=== PATIENT | female | born 1990 | race Caucasian/White ===

== ENCOUNTER 2016-04-10 22:49 | Inpatient (IN) | payer OTHER ==
[~2016-04-10] VITALS: Ht 157.5 cm; Wt 54.9 kg
[2016-04-10 22:55] VITALS: BP 146/86; PULSE 112; RESP 18; Ht 157.5 cm; Wt 54.9 kg
[2016-04-10] MEDS ORDERED: FERR325C PO (23:06)
[2016-04-10] MEDS ORDERED: LACTATED RINGER'S 1,000 ML IV SCH (23:26)
[2016-04-10] MEDS ORDERED: BUTORPHANOL 2 MG INJ IV PRN (23:30)
[2016-04-10] MEDS ORDERED: AMPICILLIN 2 GM/NS (PMX) 100 ML IV ONE (23:30)
[2016-04-10] MEDS ORDERED: LIDOCAINE 1% (MPF) 30 ML INJ INJ PRN (23:30)
[2016-04-10] MEDS ORDERED: MISOPROSTOL 200 MCG TAB PR PRN (23:30)
[2016-04-10] MEDS ORDERED: OXYTOCIN 30 UNITS/LR 500 ML IV PRN (23:30)
[2016-04-10] MEDS ORDERED: METHYLERGONOVINE 0.2 MG INJ IM PRN (23:30)
[2016-04-10] MEDS ORDERED: IBUPROFEN 600 MG TAB PO PRN (23:30)
[2016-04-10] MEDS ORDERED: CARBOPROST 250 MCG INJ IM PRN (23:30)
[2016-04-10] MEDS ORDERED: LACTATED RINGER'S 1,000 ML IV PRN (23:45)
[2016-04-11] VITALS (12 sets, daily range): BP systolic 123–146; BP diastolic 74–101; PULSE 76–103; RESP 16–20
[2016-04-11 00:10] LABS: ADD UMIC YES; URINE BILIRUBIN (Dip) NEGATIVE (NEGATIVE); URINE BLOOD (Dip) 1+ (NEGATIVE); URINE COLOR LT. YELLOW (YELLOW); URINE GLUCOSE (Dip) NEGATIVE (NEGATIVE); URINE KETONES (Dip) NEGATIVE (NEGATIVE); URINE LEUKOCYTE ESTERASE (Dip) 2+ (NEGATIVE); URINE NITRITE (Dip) NEGATIVE (NEGATIVE); URINE TOTAL PROTEIN (Dip) NEGATIVE (NEGATIVE); URINE UROBILINOGEN (Dip) 0.2 E.U./dL (0.1-1.0)
[2016-04-11] MEDS ORDERED: TERBUTALINE 1 ML ONE (00:23)
[2016-04-11] MEDS ORDERED: TERBUTALINE 1 MG/ML INJ SC ONE (00:30)
[2016-04-11 00:36] LABS: INR 1.64; PROTIME 19.5 Sec (12.2-14.2); PT RATIO 1.5
[2016-04-11 00:37] LABS: PARTIAL THROMBOPLASTIN TIME 41.5 Sec (25.0-35.0)
[2016-04-11 00:40] LABS: ALBUMIN 2.7 g/dl (3.3-4.9); POTASSIUM 4.6 mmol/L (3.5-5.1)
[2016-04-11 00:42] LABS: CREATININE 1.7 mg/dl (0.44-1.00); URIC ACID 10.4 mg/dl (3.1-7.9)
[2016-04-11 00:43] LABS: ALBUMIN/GLOBULIN RATIO 0.81; BILIRUBIN,INDIRECT 0.5 mg/dl (0-1.1); BILIRUBIN,TOTAL 1.5 mg/dl (0.2-1.3); CALCIUM 8.3 mg/dl (8.4-10.2)
[2016-04-11 00:44] LABS: BACTERIA,URINE MODERATE; SQUAMOUS EPITHELIAL CELL,UR MODERATE
[2016-04-11 00:54] LABS: BARBITURATES NEGATIVE (NEGATIVE); BENZODIAZEPINES NEGATIVE (NEGATIVE); CANNABINOIDS NEGATIVE (NEGATIVE); COCAINE NEGATIVE (NEGATIVE); OPIATES NEGATIVE (NEGATIVE)
[2016-04-11] MEDS ORDERED: MAGNESIUM SULFATE 4 GM/100 ML 100 ML ONE (01:20)
[2016-04-11] MEDS ORDERED: MAGNESIUM SULFATE 4 GM/100 ML 100 ML IVPB ONE (01:30)
[2016-04-11 01:32] LABS: BASOPHIL # 0.1 10^3/ul (0.0-0.1); BASOPHILS % 0.4 % (0.0-2.0); EOSINOPHILS % 0.2 % (0.0-7.0); HEMATOCRIT 31.2 % (37.0-47.0); HEMOGLOBIN 9.1 g/dl (12.0-16.0); LYMPHOCYTES # 2.8 10^3/ul (0.8-2.9); LYMPHOCYTES % 23.4 % (15.0-51.0); MEAN CORPUSCULAR HEMOGLOBIN 23.6 pg (29.0-33.0); MEAN CORPUSCULAR HGB CONC 29.2 g/dl (32.0-37.0); MEAN PLATELET VOLUME 12.4 fl (7.4-10.4); MONOCYTE # 0.5 10^3/ul (0.3-0.9); MONOCYTES % 4.4 % (0.0-11.0); NEUTROPHIL # 8.1 10^3/ul (1.6-7.5); NUCLEATED RED BLOOD CELLS # 0.2 10^3/ul (0.0-0.0); NUCLEATED RED BLOOD CELLS% 1.9 /100WBC (0.0-0.0); PLATELET COUNT 276 10^3/UL (140-415); RED BLOOD COUNT 3.85 10^6/ul (4.20-5.40); RED CELL DISTRIBUTION WIDTH 18.5 % (11.5-14.5); WHITE BLOOD COUNT 11.9 10^3/ul (4.8-10.8)
[2016-04-11] MEDS: OXYTOCIN 30 UNITS/LR 500 ML IV SCH ×2 (01:39→01:41)
[2016-04-11] MEDS ORDERED: OXYTOCIN 30 UNITS/LR 500 ML IV SCH (01:45)
[2016-04-11] MEDS ORDERED: MAGNESIUM SULFATE 20 GM/500 ML 500 ML IV SCH ×2 (01:45→02:00)
--- NOTE | 2016-04-11 01:58 | LDN ---
Date/Time of Note Date/Time of Note DATE: 04/11/16 TIME: 01:55 Delivery Summary of a viable baby girl weighing 2024 grams, or 4# 7 oz, 16.75" long, and with Apgars of 8/9. Placenta Delivered: Spontaneously Meconium: none Perineum intact?: No Perineal laceration: 2 Perineal laceration repair: Second degree perineal episiotomy repaired with 2-0 chromic. Anesthesia type: Local Estimated blood loss: 200 Sponge & Needle done & correct: Yes All needle counts correct: Yes Any foreign bodies felt in the: No (vagina) Problems: Delivery Information Sex Sex: female Apgars 1 Minute: 8 5 Minute: 9 Suctioning Nose & mouth suctioned at radames: No Delee suction performed: No Umbilical Cord Umbilical cord with: 3 Vessels Cord presentations: no nuchal cord Cord Blood was obtained: Yes Mother & Baby Disposition Disposition Mom & Baby to Maternity; Good: Yes Baby to NICU: No BRUCE WATTS MD Apr 11, 2016 01:58
[2016-04-11] MEDS ORDERED: CARBOPROST 250 MCG INJ IM PRN (02:00)
[2016-04-11] MEDS ORDERED: OXYTOCIN 30 UNITS/LR 500 ML IV PRN (02:00)
[2016-04-11] MEDS ORDERED: OXYCODONE/ASPIRIN (4.88/325) TAB PO PRN (02:00)
[2016-04-11] MEDS ORDERED: METHYLERGONOVINE 0.2 MG INJ IM PRN (02:00)
[2016-04-11] MEDS ORDERED: BENZOCAINE 20% 56 ML SPRAY TOP PRN (02:00)
[2016-04-11] MEDS ORDERED: MISOPROSTOL 200 MCG TAB PR PRN (02:00)
--- NOTE | 2016-04-11 02:07 | HP ---
Date/Time of Note Date/Time of Note DATE: 04/11/16 TIME: 01:58 OB - History Hx of Present Free Text/Dictation 26 y.o. G1 with an IUP at 36 weeks 4 days came in active labor at 4 cm and quickly progressed to complete. Blood pressures noted to be elevated. Received lab results after delivery confirming severe PIH, not labor pains, as the primary source of the elevated BP's. Uric acid elevated and the LFT's were elevated. Platelets are normal. Started on magnesium after delivery. Pt was living in the [facility] with her parents and just moved to [place] to live with the FOB. Estimated Due Date: May 05, 2016 : 1 Para: 0 Spontaneous : 0 Care: Good Care Obstetrical Complications: Pre-eclampsia Past Family/Social History * Past Medical, Surgical, Family and Obstetric Histories reviewed from the patient. Prenatals not available. Blood Type: Unknown Rubella: unknown RPR/VDRL: Unknown GBS Status: Unknown HBsAG: Unknown OB Admission Exam Vital Signs Vital Signs Vital Signs Date Time Temp Pulse Resp B/P Pulse Ox O2 Delivery O2 Flow Rate FiO2 04/10/16 22:55 97.4 112 18 146/86 Room Air Physical Exam HEENT: WNL Heart: Rhythm Normal Lungs: Clear Abdomen: WNL Extremities: Edema (1-2+ edema.) Cervical Dilatation: 5cm Effacement: 100% Station: -2 Membranes: Intact Heart Rate: 130's Accelerations: Accelerations Present Decelerations: Late Decelarations Varibility: Moderate Contractions on Admission: < 5 Minutes Apart Last 72 hours Lab Results CBC & BMP 04/10/16 00:10 Liver Function Test 04/10/16 00:10 Alanine Aminotransferase (ALT/SGPT) 429 H Albumin 2.7 L Alkaline Phosphatase 471 H Aspartate Amino Transf (AST/SGOT) 344 H Direct Bilirubin 1.00 H Total Protein 6.0 L OB Assessment/Plan Reason for admission: active labor, labor, other (severe PIH.) Plan: Expectant Management Induction Method: other (pitocin) BRUCE WATTS MD Apr 11, 2016 02:07
--- NOTE | 2016-04-11 02:09 | RADRPT ---
PROCEDURE: ULTRASOUND OBSTETRICAL CLINICAL INDICATION: 26-year-old female in labor for size and date determination. TECHNIQUE: Multiple sonographic images of the pelvis were obtained. The images were reviewed on a PACS workstation. COMPARISON: No prior studies are available for comparison. FINDINGS: The cervix is not well visualized. There is a single viable intrauterine gestation. Cardiac activi ty is present with 141 beats per minute. There is a vertex presentation. Measurements were made in o rder to determine age. The results are as follows: BPD = 8.71 cm, HC = 31.31 cm, AC = 31.03 cm, FL = 6.89 cm. This yields and estimated gestational ag e of approximately 35 weeks 1 day. The estimated date of delivery is May 14, 2016. The EFW = 259 4 +/- 389 g (5 lb 12 oz). The GP is 20%. The amniotic fluid index equals 7.4 cm. IMPRESSION: 1. Single viable intrauterine gestation of approximately 35 weeks 1 day with vertex presentation. The estimated date of delivery is May 14, 2016. 2. The estimated weight is 2594 +/- 389 g (5 lb 12 oz). The GP is 20%. .Evert Thomas MD, Date Time Electronically viewed and signed by .Evert Thomas MD, MD on 04/11/2016 02:09 .Jose E/
[2016-04-11] MEDS ORDERED: LABETALOL HCL 20MG INJ ONE (02:10)
[2016-04-11] MEDS ORDERED: LABETALOL HCL 20MG INJ IV ONE ×2 (02:15→03:15)
[2016-04-11] MEDS ORDERED: ONDANSETRON 4 MG INJ IV STA (02:42)
[2016-04-11] MEDS ORDERED: AMPICILLIN 1 GM/NS (PMX) 50 ML IV SCH (03:30)
[2016-04-11] MEDS: LACTATED RINGER'S 1,000 ML IV SCH ×2 (12:06→12:07)
[2016-04-11] MEDS ORDERED: OMEPRAZOLE 20 MG PO SCH (18:30)
[2016-04-11] MEDS: PAROXETINE 20 MG TAB PO SCH (23:48)
[2016-04-11] MEDS: OMEPRAZOLE 20 MG PO SCH (23:48)
[2016-04-12] VITALS: BP 125/84; PULSE 97; RESP 18
[2016-04-12 04:00] VITALS: BP 115/68; PULSE 81; RESP 18
[2016-04-12 07:23] LABS: INR 1.7; PARTIAL THROMBOPLASTIN TIME 40.7 Sec (25.0-35.0); PROTIME 20.1 Sec (12.2-14.2); PT RATIO 1.6
[2016-04-12 07:24] LABS: BASOPHIL # 0.1 10^3/ul (0.0-0.1); BASOPHILS % 0.3 % (0.0-2.0); EOSINOPHILS % 0.1 % (0.0-7.0); HEMATOCRIT 23.1 % (37.0-47.0); HEMOGLOBIN 7.4 g/dl (12.0-16.0); LYMPHOCYTES # 4.4 10^3/ul (0.8-2.9); LYMPHOCYTES % 23.1 % (15.0-51.0); MEAN CORPUSCULAR HEMOGLOBIN 24.9 pg (29.0-33.0); MEAN CORPUSCULAR HGB CONC 32.1 g/dl (32.0-37.0); MEAN CORPUSCULAR VOLUME 77.7 fl (82.0-101.0); MEAN PLATELET VOLUME 9.9 fl (7.4-10.4); MONOCYTE # 1.1 10^3/ul (0.3-0.9); NEUTROPHIL # 13.4 10^3/ul (1.6-7.5); NEUTROPHILS % 70.5 % (39.0-77.0); PLATELET COUNT 203 10^3/UL (140-440); RED BLOOD COUNT 2.97 10^6/ul (4.20-5.40); RED CELL DISTRIBUTION WIDTH 20.1 % (11.5-14.5)
[2016-04-12 07:31] LABS: CONDITION 1; LH ANALYZER COMMENTS 1
[2016-04-12 07:40] LABS: ALBUMIN 1.9 g/dl (3.3-4.9)
[2016-04-12 07:41] LABS: POTASSIUM 3.6 mmol/L (3.5-5.1)
[2016-04-12 07:43] LABS: BILIRUBIN,DIRECT 0.5 mg/dl (0.00-0.20); BILIRUBIN,INDIRECT 0.5 mg/dl (0-1.1); CREATININE 1.89 mg/dl (0.44-1.00); TOTAL PROTEIN 4.6 g/dl (6.1-8.1)
[2016-04-12 07:44] LABS: PHOSPHORUS 4.1 mg/dl (2.5-4.9)
[2016-04-12 08:30] VITALS: BP 122/80; PULSE 82; RESP 16
[2016-04-12] MEDS: OMEPRAZOLE 20 MG PO SCH (09:29)
--- NOTE | 2016-04-12 12:45 | QN ---
Documentation Comment ppd1 pt doing well vs exam wnl continue care TOMASZ ESPAÑA MD Apr 12, 2016 12:45
[2016-04-12] MEDS ORDERED: IBUPROFEN 600 MG TAB PO PRN (15:00)
[2016-04-12 16:00] VITALS: BP 128/84; PULSE 80; RESP 18
[2016-04-12 20:00] VITALS: BP_SYST 104; BP_SYST 132; BP_DIAS 63; BP_DIAS 86; PULSE 71; PULSE 74; RESP 16; RESP 20
[2016-04-13] VITALS: BP 123/82; PULSE 70; RESP 20
[2016-04-13] MEDS: PAROXETINE 20 MG TAB PO SCH (00:13)
[2016-04-13 04:19] VITALS: BP 131/77; PULSE 84; RESP 20
[2016-04-13] MEDS: OMEPRAZOLE 20 MG PO SCH (05:56)
[2016-04-13 08:30] VITALS: BP 140/70; PULSE 85; RESP 16
[2016-04-13 11:23] LABS: BASOPHIL # 0.1 10^3/ul (0.0-0.1); BASOPHILS % 0.4 % (0.0-2.0); EOSINOPHILS % 0.2 % (0.0-7.0); HEMATOCRIT 26.7 % (37.0-47.0); HEMOGLOBIN 8.4 g/dl (12.0-16.0); LYMPHOCYTES # 3.8 10^3/ul (0.8-2.9); LYMPHOCYTES % 24.2 % (15.0-51.0); MEAN CORPUSCULAR HEMOGLOBIN 24.5 pg (29.0-33.0); MEAN CORPUSCULAR HGB CONC 31.3 g/dl (32.0-37.0); MEAN CORPUSCULAR VOLUME 78.3 fl (82.0-101.0); MEAN PLATELET VOLUME 9.5 fl (7.4-10.4); MONOCYTE # 0.8 10^3/ul (0.3-0.9); MONOCYTES % 5.3 % (0.0-11.0); NEUTROPHIL # 11.1 10^3/ul (1.6-7.5); NEUTROPHILS % 69.9 % (39.0-77.0); PLATELET COUNT 237 10^3/UL (140-440); RED BLOOD COUNT 3.41 10^6/ul (4.20-5.40); UNCORRECTED WBC 15.9 10^3/ul (4.8-10.8); WHITE BLOOD COUNT 15.9 10^3/ul (4.8-10.8)
[2016-04-13 11:29] LABS: CONDITION 1; LH ANALYZER COMMENTS 1; NUCLEATED RED BLOOD CELLS # 0.3 10^3/ul (0.0-0.0)
[2016-04-13 11:35] LABS: ALBUMIN 2.3 g/dl (3.3-4.9)
[2016-04-13 11:36] LABS: POTASSIUM 3.7 mmol/L (3.5-5.1)
[2016-04-13 11:38] LABS: BILIRUBIN,DIRECT 0.4 mg/dl (0.00-0.20); BILIRUBIN,INDIRECT 0.4 mg/dl (0-1.1); BILIRUBIN,TOTAL 0.8 mg/dl (0.2-1.3); CREATININE 1.31 mg/dl (0.44-1.00)
[2016-04-13 11:39] LABS: ALBUMIN/GLOBULIN RATIO 0.74; CALCIUM 6.9 mg/dl (8.4-10.2); TOTAL PROTEIN 5.4 g/dl (6.1-8.1)
[2016-04-13 13:27] LABS: RUBELLA ANTIBODY - IGG 2.16
[2016-04-13 16:00] VITALS: BP 135/85; PULSE 72; RESP 17
== END 2016-04-13 19:59 | disposition home or self-care (01) | DRG 775 ==
LOC: OBT 22:49 → L-D 22:51 → OBT 04-11 00:21 → L-D 04-11 00:22 → PP1 04-11 05:50
PROVIDERS: ADMIT Obstetrics & Gynecology; ATTEND Obstetrics & Gynecology
PROC: 10E0XZZ Delivery of Products of Conception, External Approach (ICD-10-PCS; principal; 2016-04-11)
PROC: 0KQM0ZZ Repair Perineum Muscle, Open Approach (ICD-10-PCS; 2016-04-11)
DX: O60.14X0 Preterm labor third trimester with preterm delivery third trimester, not applicable or unspecified (principal); O14.94 Unspecified pre-eclampsia, complicating childbirth; O70.1 Second degree perineal laceration during delivery; Z3A.36 36 weeks gestation of pregnancy; Z37.0 Single live birth
CPT/HCPCS: 76815; 80053; 80069; 80076; 80307; 81001; 81003; 83735; 84560; 85025; 85610; 85730; 86592; 86703; 86762; 86850; 86900; 86901; 86920; 87340; 88307; 99464; G0463; J0290; J2405; J2590; J3105; J3475; J7120